=== PATIENT | male | born 1990 | race Caucasian/White ===

== ENCOUNTER 2022-03-26 18:02 | Emergency (ER) | payer SELFPAY ==
[~2022-03-26] VITALS: Ht 167.6 cm; Wt 69.0 kg
[2022-03-26 18:10] VITALS: BP 147/89
[2022-03-26] MEDS ORDERED: CEFAZOLIN SODIUM 1000MG/VIAL IM ONE (22:00)
== END 2022-03-27 00:45 | disposition left against medical advice (07) ==
LOC: ER 18:02
DX: S60.450A Superficial foreign body of right index finger, initial encounter (principal); X58.XXXA Exposure to other specified factors, initial encounter; Y93.89 Activity, other specified; Y92.89 Other specified places as the place of occurrence of the external cause; Y99.9 Unspecified external cause status
CPT/HCPCS: 73130; 96372; 99283; J0690